=== PATIENT | female | born 1940 | race Caucasian/White ===

== ENCOUNTER 2018-01-21 07:19 | Emergency (ER) | payer MEDICARE, MEDICAID ==
[~2018-01-21] VITALS: Ht 152.4 cm; Wt 64.4 kg
--- NOTE | 2018-01-21 07:30 | NUR ---
AAOX3, BIB FAMILY C/O HYPERTENSION WITH SBP OF 220 PRIOR TO ARRIVAL. PATIENT STATES THAT SHE TOOK CLONIDINE 0.1MG LAST NIGHT BUT NOT TODAY. AMBULATES TO ER BED 09 WITH STABLE GAIT. RR IS EVEN AND UNLABORED WITH NAD NOTED. PLACED ON THE MONITOR. DR LUCIO AT FOR EVAL.
[2018-01-21 07:51] LABS: BASOPHILS % (AUTO) 0.3 % (0.0-2.0); EOSINOPHILS % (AUTO) 0.6 % (0.0-6.0); HEMATOCRIT 39 % (33-45); HEMOGLOBIN 13.1 g/dL (11.5-14.8); LYMPHOCYTES # (AUTO) 2.8 /CMM (0.8-4.8); LYMPHOCYTES % (AUTO) 43.5 % (20.0-44.0); MEAN CORPUSCULAR HGB CONC 34 g/dl (31.0-36.0); MEAN CORPUSCULAR VOLUME 88 fL (82-100); MONOCYTES # (AUTO) 0.2 /CMM (0.1-1.30); MONOCYTES % (AUTO) 3.8 % (2.0-12.0); NEUTROPHILS # (AUTO) 3.4 /CMM (1.8-8.9); NEUTROPHILS % (AUTO) 51.8 % (43.0-81.0); PLATELET COUNT (AUTO) 171 /CMM (150-450); RED BLOOD CELL COUNT(AUTO) 4.41 MIL/uL (4.0-5.2); WHITE BLOOD COUNT (AUTO) 6.5 K/uL (4.3-11.0)
[2018-01-21] MEDS ORDERED: ENALAPRILAT DIHYD. (2.5MG/ML) 1.25 MG/ML VIAL IV ONE ×2 (08:00→08:18)
[2018-01-21 08:07] LABS: ALANINE AMINOTRANSFERASE 61 U/L (12-78); ALBUMIN 3.7 g/dL (3.4-5.0); ALKALINE PHOSPHATASE 64 U/L (46-116); ASPARTATE AMINOTRANSFERASE 37 U/L (15-37); BILIRUBIN,DIRECT 0.1 mg/dL (0.0-0.2); BILIRUBIN,TOTAL 0.4 mg/dL (0.2-1.0); CALCIUM, SERUM 9.1 mg/dL (8.5-10.1); CARBON DIOXIDE 31 mmol/L (21-32); CHLORIDE 104 mmol/L (98-107); GLUCOSE 96 mg/dL (74-106); POTASSIUM 3.7 mmol/L (3.5-5.1); SODIUM SERUM 143 mmol/L (136-145); UREA NITROGEN, BLOOD 16 mg/dL (7-18)
[2018-01-21] MEDS ORDERED: METOPROLOL SUCCINATE 25 MG TAB.SR.24H PO STA (08:24)
--- NOTE | 2018-01-21 08:24 | NUR ---
DR LUCIO AT FOR AN UPDATE AND RE-EVAL.
[2018-01-21] MEDS ORDERED: METOPROLOL TARTRATE 25 MG TABLET ONE (08:28)
[2018-01-21 08:35] VITALS: BP 157/72
== END 2018-01-21 08:36 | disposition home or self-care (01) ==
LOC: ER 07:20
DX: I10 Essential (primary) hypertension (principal); J45.909 Unspecified asthma, uncomplicated; F32.9 Major depressive disorder, single episode, unspecified; R07.89 Other chest pain
CPT/HCPCS: 36415; 71045; 80048; 80076; 84484; 85025; 85730; 93005; 96374; 99284; A4606; J3490; Z7610

== ENCOUNTER 2020-08-24 12:27 | Inpatient (IN) | payer MEDICARE, OTHER ==
[~2020-08-24] VITALS: Ht 152.4 cm; Wt 66.2 kg
[2020-08-24] MEDS ORDERED: CLON0.1T PO (12:40)
[2020-08-24] MEDS ORDERED: SIMV-46 PO (12:40)
[2020-08-24] MEDS ORDERED: HYDR-4077 PO (12:40)
[2020-08-24] MEDS ORDERED: SENN-148 PO (12:40)
[2020-08-24] MEDS ORDERED: GABA300C PO (12:40)
[2020-08-24] MEDS ORDERED: FERR325T24 PO (12:40)
[2020-08-24] MEDS ORDERED: AMLO-213 PO (12:40)
[2020-08-24] MEDS ORDERED: ASPI-1420 PO (12:40)
[2020-08-24] MEDS ORDERED: OLME40TA18 PO (12:40)
[2020-08-24] MEDS ORDERED: DEXL60CA3 PO (12:40)
[2020-08-24] MEDS ORDERED: METO25TA20 PO (12:40)
--- NOTE | 2020-08-24 12:56 | NUR ---
CALLED NURSING SUP FOR TELE BED.
[2020-08-24 13:01] LABS: BASOPHILS % (AUTO) 0.4 % (0.0-2.0); HEMATOCRIT 40 % (33-45); HEMOGLOBIN 13.4 g/dL (11.5-14.8); LYMPHOCYTES # (AUTO) 1.3 K/uL (0.8-4.8); LYMPHOCYTES % (AUTO) 30.5 % (20.0-44.0); MEAN CORPUSCULAR HGB CONC 34 g/dl (31.0-36.0); MEAN CORPUSCULAR VOLUME 89 fL (82-100); MONOCYTES # (AUTO) 0.3 K/uL (0.1-1.30); MONOCYTES % (AUTO) 5.9 % (2.0-12.0); NEUTROPHILS # (AUTO) 2.8 K/uL (1.8-8.9); NEUTROPHILS % (AUTO) 63.2 % (43.0-81.0); PLATELET COUNT (AUTO) 112 K/uL (150-450); RED BLOOD CELL COUNT(AUTO) 4.43 MIL/uL (4.0-5.2); WHITE BLOOD COUNT (AUTO) 4.4 K/uL (4.3-11.0)
[2020-08-24] MEDS ORDERED: ZOLP5TAB8 PO (13:09)
[2020-08-24] MEDS ORDERED: ALPR0.5T8 PO (13:09)
[2020-08-24] MEDS ORDERED: HYDR25TA4 PO (13:09)
[2020-08-24 13:13] LABS: CALCIUM, SERUM 8.3 mg/dL (8.5-10.1); CARBON DIOXIDE 27 mmol/L (21-32); CHLORIDE 94 mmol/L (98-107); GLUCOSE 94 mg/dL (74-106); POTASSIUM 3.4 mmol/L (3.5-5.1); SODIUM SERUM 133 mmol/L (136-145); UREA NITROGEN, BLOOD 16 mg/dL (7-18)
--- NOTE | 2020-08-24 13:16 | NUR ---
HIMA ALVAREZ [phone]
--- NOTE | 2020-08-24 13:17 | NUR ---
BIBDAUGHTER FROM HOME TO ER BED 7. AAOX4. SOB, NOTED SATTING @ 92% ON RA. BROUGHT IN FOR FLU LIKE SYMPTOM. SOB SATTING @ 92% X 5 DAYS. PLACED ON 02 VIA NC @ 4LPM W/ NOT SLIGHT DISTRESS ALLEVIATION. PT REPORTS NOT TO BE COVID VACCINATED. WAS AT THE BEDSIDE. PT ON MONITOR
[2020-08-24 13:25] LABS: ALANINE AMINOTRANSFERASE 30 U/L (12-78); ALBUMIN 3.5 g/dL (3.4-5.0); ALKALINE PHOSPHATASE 62 U/L (46-116); ASPARTATE AMINOTRANSFERASE 30 U/L (15-37); BILIRUBIN,TOTAL 0.5 mg/dL (0.2-1.0); TOTAL PROTEIN, SERUM 7.4 g/dL (6.4-8.2)
[2020-08-24 13:51] LABS: D-DIMER 0.57 mg/L(FEU (0.17-0.50)
[2020-08-24] MEDS ORDERED: CEFTRIAXONE 1 G in IV D5W 50 ML IV ONE (14:30)
[2020-08-24] MEDS ORDERED: AZITHROMYCIN 500 MG in IV D5W 250 ML IV ONE (14:30)
--- NOTE | 2020-08-24 15:23 | NUR ---
room 120-1
[2020-08-24 15:39] LABS: CREATINE KINASE, TOTAL 104 U/L (26-192); FERRITIN 695 ng/mL (8-388)
--- NOTE | 2020-08-24 15:43 | NUR ---
REPORT GIVEN TO ALAYNA LAURA FOR RONN
[2020-08-24 15:44] LABS: C-REACTIVE PROTEIN 26.6 mg/dL (0.0-0.9)
--- NOTE | 2020-08-24 16:12 | NUR ---
PT TRANSPORTED TO UNIT ON GURNEY WITH EMT AND RN AT BEDSIDE W/ ACLS PROTOCOL. NAD NOTED DURING TRANSPORT.
--- NOTE | 2020-08-24 16:15 | NUR ---
RN NOTES PATIENT TRANSFERRED TO UNIT AT ROOM 120-2 VIA RWHEELER, ACCOMPANIED BY 2 ER NURSES.
[2020-08-24 16:30] VITALS: BP 140/90
[2020-08-24] MEDS ORDERED: MAGNESIUM HYDROXIDE 30 ML UDC PO PRN (17:00)
[2020-08-24] MEDS ORDERED: ZOLPIDEM TARTRATE 5 MG TABLET PO PRN (17:00)
[2020-08-24] MEDS ORDERED: Z GUARD REMEDY 2 OZ OINT TP PRN (17:00)
[2020-08-24] MEDS ORDERED: MAG HYDROX/AL HYDROX/SIMETH 30 ML UDC PO PRN (17:00)
--- NOTE | 2020-08-24 18:34 | NUR ---
RN NOTES ADMITTED THIS 80-YEAR-OLD FEMALE PATIENT FROM ER W/ COMPLAINT OF FLU-LIKE SYMPTOMS AND ADMITTING DX OF LINGULAR PNEUMONIA UNDER THE CARE OF DR. GIVENS. PATIENT IS A/O X4, [place] CITIZEN-SPEAKING BUT SPEAKS/UNDERSTANDS CITIZEN OF [place], ABLE TO MAKE NEEDS KNOWN. CURRENTLY ON O2 AT 3LPM VIA N/C, NO SOB AT REST BUT GETS SHORT OF BREATH UPON EXERTION. PATIENT IS AMBULATORY W/ STEADY GAIT, NO SKIN ISSUES. IV LINE ON LAC #18 INTACT AND PATENT; IV ATB PREVIOUSLY GIVEN AT ER. INSTITUTED DROPLET PRECAUTION PER MD'S ORDER. CURRENTLY RAPID COVID NEGATIVE AND PCR PENDING. SAFETY MEASURES MAINTAINED. WILL ENDORSE TO SECTION LABORER RN FOR RONN.
--- NOTE | 2020-08-24 19:00 | NUR ---
received in bed with her street clothes on and tele monitor lying in the bed, changed her clothes and placed an hospital gown on and put on the heart monitor and noted HR 106 ST on the monitor she is alert and orientated X4 smiling and cooperative
[2020-08-24] MEDS: ACETAMINOPHEN 325 MG TABLET PO PRN (19:59)
[2020-08-24] MEDS: ENOXAPARIN SODIUM 40 MG/0.4 ML DISP.SYRIN SQ SCH (21:07)
--- NOTE | 2020-08-25 05:01 | NUR ---
CLOSING NOTES: IN BED ALERT AND ORIENTATED X4 DRINKING WATER SWALLOWS W/O PROBLEMS C/O FEELING TIRED AND WEAK. REVIEWED THE CALL LIGHT WITH HER AND REMINDED HER TO CALL FOR ASSIST WHEN GETTING OOB TYLENOL GIVEN FOR H/A AND EFFECTIVE TEMP AT 4AM WAS 100.3 ORALLY RSP [address] HR 105 DROPLET ISOLATION
[2020-08-25 05:06] VITALS: BP 125/80
[2020-08-25 06:38] LABS: BASOPHILS % (AUTO) 0.2 % (0.0-2.0); HEMATOCRIT 36 % (33-45); HEMOGLOBIN 12.1 g/dL (11.5-14.8); LYMPHOCYTES # (AUTO) 1.3 K/uL (0.8-4.8); LYMPHOCYTES % (AUTO) 33.9 % (20.0-44.0); MEAN CORPUSCULAR HGB CONC 34 g/dl (31.0-36.0); MEAN CORPUSCULAR VOLUME 91 fL (82-100); MONOCYTES # (AUTO) 0.3 K/uL (0.1-1.30); MONOCYTES % (AUTO) 7.6 % (2.0-12.0); NEUTROPHILS # (AUTO) 2.3 K/uL (1.8-8.9); NEUTROPHILS % (AUTO) 58.3 % (43.0-81.0); PLATELET COUNT (AUTO) 113 K/uL (150-450); RED BLOOD CELL COUNT(AUTO) 3.97 MIL/uL (4.0-5.2); WHITE BLOOD COUNT (AUTO) 3.9 K/uL (4.3-11.0)
[2020-08-25 06:42] LABS: CALCIUM, SERUM 8.1 mg/dL (8.5-10.1); CREATININE 1.1 mg/dL (0.6-1.3); MAGNESIUM 2.1 mg/dL (1.8-2.4); PHOSPHORUS 3.5 mg/dL (2.5-4.9); POTASSIUM 3.4 mmol/L (3.5-5.1)
[2020-08-25] MEDS: PANTOPRAZOLE 40 MG TABLET.DR PO SCH (07:36)
--- NOTE | 2020-08-25 07:40 | NUR ---
RN NOTE PATIENT IS IN BED WITH HOB AT SEMI FOWLERS POSITION. PATIENT IS AOX4. PATIENT ON 3L NC WITH NO SIGNS OF LABORED BREATHING. BED IS LOCKED IN THE LOWEST POSITION, 3 GUARD RAILS RAISED, CALL ARANA WITHIN REACH, AND ALL HOSPITAL SAFETY PRECAUTIONS ARE BEING FOLLOWED. WILL CONTINUE TO MONITOR THROUGHOUT SHIFT.
[2020-08-25 07:42] LABS: C-REACTIVE PROTEIN 22.4 mg/dL (0.0-0.9)
[2020-08-25 08:00] VITALS: BP 104/76
[2020-08-25] MEDS ORDERED: CEFTRIAXONE 1GM BAG (ER ONLY) 1 GM/50 ML PIGGYBACK IV SCH (09:00)
[2020-08-25] MEDS ORDERED: POTASSIUM CHLORIDE 20 MEQ TAB.PRT.SR PO SCH (09:30)
[2020-08-25 12:00] VITALS: BP 130/69
[2020-08-25] MEDS: CEFTRIAXONE 1 G in IV D5W 50 ML IV SCH (13:22)
[2020-08-25 16:00] VITALS: BP 150/69
[2020-08-25] MEDS: AZITHROMYCIN 500 MG in IV D5W 250 ML IV SCH (16:03)
[2020-08-25] MEDS: ACETAMINOPHEN 325 MG TABLET PO PRN (16:33)
--- NOTE | 2020-08-25 17:19 | NUR ---
RN NOTE ADMINISTERED TYLENOL FOR TEMPERATURE OF 100.7 WILL CONTINUE TO MONITOR.
--- NOTE | 2020-08-25 18:53 | NUR ---
RN NOTE PATIENT IS IN BED WITH HOB AT SEMI FOWLERS POSITION. PATIENT IS AOX4. PATIENT ON 3L NC WITH NO SIGNS OF LABORED BREATHING. LAC IV ACCESS IS PATENT AND INTACT. BED IS LOCKED IN THE LOWEST POSITION, 3 GUARD RAILS RAISED, CALL ARANA WITHIN REACH, AND ALL HOSPITAL SAFETY PRECAUTIONS ARE BEING FOLLOWED. ALL DUE MEDS GIVEN AND PATIENT REMAINED STABLE THROUGHOUT SHIFT. WILL ENDORSE TO SENIOR BUSINESS PROCESS ANALYST RN.
[2020-08-25 20:00] VITALS: BP 120/67
[2020-08-25] MEDS: ENOXAPARIN SODIUM 40 MG/0.4 ML DISP.SYRIN SQ SCH (20:53)
[2020-08-26] VITALS: BP 118/71
[2020-08-26] MEDS: PANTOPRAZOLE 40 MG TABLET.DR PO SCH (07:23)
--- NOTE | 2020-08-26 07:25 | NUR ---
RN NOTE PATIENT IS IN BED WITH HOB AT SEMI FOWLERS POSITION. PATIENT IS AOX4. PATIENT ON 3L NC WITH NO SIGNS OF LABORED BREATHING. LAC IV ACCESS IS PATENT AND INTACT. BED IS LOCKED IN THE LOWEST POSITION, 3 GUARD RAILS RAISED, CALL ARANA WITHIN REACH, AND ALL HOSPITAL SAFETY PRECAUTIONS ARE BEING FOLLOWED. WILL CONTINUE TO MONITOR THROUGHOUT SHIFT.
[2020-08-26 07:27] LABS: BASOPHILS % (AUTO) 0.1 % (0.0-2.0); HEMATOCRIT 36 % (33-45); HEMOGLOBIN 11.8 g/dL (11.5-14.8); LYMPHOCYTES # (AUTO) 1.2 K/uL (0.8-4.8); LYMPHOCYTES % (AUTO) 37.6 % (20.0-44.0); MEAN CORPUSCULAR HGB CONC 33 g/dl (31.0-36.0); MEAN CORPUSCULAR VOLUME 91 fL (82-100); MONOCYTES # (AUTO) 0.3 K/uL (0.1-1.30); MONOCYTES % (AUTO) 8.2 % (2.0-12.0); NEUTROPHILS # (AUTO) 1.8 K/uL (1.8-8.9); NEUTROPHILS % (AUTO) 54.1 % (43.0-81.0); PLATELET COUNT (AUTO) 126 K/uL (150-450); RED BLOOD CELL COUNT(AUTO) 3.91 MIL/uL (4.0-5.2); WHITE BLOOD COUNT (AUTO) 3.3 K/uL (4.3-11.0)
[2020-08-26 07:44] LABS: CREATININE 1.1 mg/dL (0.6-1.3); MAGNESIUM 2.2 mg/dL (1.8-2.4); PHOSPHORUS 3.4 mg/dL (2.5-4.9); POTASSIUM 3.7 mmol/L (3.5-5.1)
[2020-08-26 08:00] VITALS: BP 136/76
[2020-08-26 12:00] VITALS: BP_SYST 118; BP_SYST 129; BP_DIAS 71; BP_DIAS 78
[2020-08-26] MEDS: CEFTRIAXONE 1 G in IV D5W 50 ML IV SCH (13:56)
[2020-08-26 16:00] VITALS: BP_SYST 142; BP_SYST 152; BP_DIAS 75
[2020-08-26] MEDS: AZITHROMYCIN 500 MG in IV D5W 250 ML IV SCH (16:00)
--- NOTE | 2020-08-26 18:42 | NUR ---
RN NOTE PATIENT IS IN BED WITH HOB AT SEMI FOWLERS POSITION. PATIENT IS AOX4. PATIENT ON 2L NC WITH NO SIGNS OF LABORED BREATHING. LAC IV ACCESS IS PATENT AND INTACT. BED IS LOCKED IN THE LOWEST POSITION, 3 GUARD RAILS RAISED, CALL ARANA WITHIN REACH, AND ALL HOSPITAL SAFETY PRECAUTIONS ARE BEING FOLLOWED. ALL DUE MEDS GIVEN AND PATIENT REMAINED STABLE THROUGHOUT SHIFT. WILL ENDORSE TO TRANSFORMER INSPECTOR RN.
[2020-08-26 20:00] VITALS: BP 158/76
[2020-08-26] MEDS: ENOXAPARIN SODIUM 40 MG/0.4 ML DISP.SYRIN SQ SCH (20:18)
--- NOTE | 2020-08-26 21:30 | NUR ---
RN NOTES, MIDLINE NURSE AT PATIENT'S ROOM, SATISFACTORY INSERTION OF MARCO MIDLINE 18G, PATENT AND INTACT, PATIENT TOLERATED PROCEDURE WELL.
[2020-08-27] VITALS: BP 150/84
[2020-08-27 04:00] VITALS: BP 150/86
--- NOTE | 2020-08-27 06:45 | NUR ---
RN NOTE PATIENT IS IN BED AOX4, NO SOB/ACUTE DISTRESS NOTED, KEEPING O2 >96% ,NO SIGNIFICANT CHANGE IN CONDITION DURING THE NIGHT, AMBULATORY, BRP PRIVILEGES, TOLERATED WELL, BED LOCKED AND IN LOWEST POSITION, CALL LIGHT WITHIN REACH, REMAINED STABLE THROUGHOUT SHIFT, WILL ENDORSE CONTINUITY OF CARE TO ONCOMING NURSE.
[2020-08-27 08:00] VITALS: BP 159/84
[2020-08-27] MEDS: PANTOPRAZOLE 40 MG TABLET.DR PO SCH (09:18)
[2020-08-27 12:00] VITALS: BP 141/77
[2020-08-27] MEDS: ACETAMINOPHEN 325 MG TABLET PO PRN (13:15)
--- NOTE | 2020-08-27 13:20 | NUR ---
rn notes noted with elevated temperature 100.4, cooling measures rendered and tylenol given PO, will continue to monitor.
[2020-08-27] MEDS: CEFTRIAXONE 1 G in IV D5W 50 ML IV SCH (13:23)
[2020-08-27 16:00] VITALS: BP 161/82
[2020-08-27] MEDS: AZITHROMYCIN 250 MG TABLET PO SCH (16:31)
--- NOTE | 2020-08-27 18:52 | NUR ---
RN NOTES Patient in bed resting comfortably in moderate high back rest. a/o x4, able to make needs known, on Oxygen 2lpm via nc, tolerating well, no signs of distress noted throughout the shift, IV access on MARCO mid line. intact and patent. Safety measures maintained, bed in lowest locked position with side rails up x2, call light within reach, will endorse to shift supervisor rn nurse for leeanna.
--- NOTE | 2020-08-27 19:10 | NUR ---
RN NOTES: RECEIVED AWAKE ON BED ON SEMI FOWLERS POSITION, ON O2 AT 2L/MIN SPO2-95% ON SR TO ST-100, AMBULATOR, SKIN IS INTACT, A/0 X 4 ABLE TO MAKE NEEDS KNOWN, MARCO MID LINE INTACT AND PATENT, KEPT ON CLOSE WATCH -NO SIGN OF RESPIRATORY DISTRESS, ORIETNED TO UNIT AND STAFF, FALL,SAFETY AND ASPIRATION PRECAUTION OBSERVED.
--- NOTE | 2020-08-27 19:12 | NUR ---
RN NOTES: RECEIVED LYING ON BED ON SEMI FOWLERS POSITION, PER ENDORSEMENT PATIENT CAME FROM ICU, EXTUBATED LAST THURSDAY, NON VERBAL, RESPONDING WHEN NAME IS CALLED HE IS LOOKING AT YOU MAKING EYE CONTACT,ON O2 AT 2L/MIN VIA NC SPO2-95%,ON PEG TUBE WITH FEEDING OF GLUCERNA 1.2 AT 55 ML/HR ,KEPT HEAD ELEVATED,ON TELE MONITOR SR-82, TO REINSERT CONDOM CATH, IT WAS OUT. --ORIENTED TO UNIT AND STAFF, BED LO AND LOCKED, KEPT CALL LIGHT WITHIN EASY REACH, FALL, ASPIRATION AND SAFETY PRECAUTION OBSERVED. --NEEDS ATTENDED. Addendum: 08/28/20 at 0006 by YELITZA HESS RN --WRONG ENTRY OF CHARTING ITS FOR 111-BED 2
[2020-08-27 20:00] VITALS: BP 149/71
[2020-08-27] MEDS: ENOXAPARIN SODIUM 40 MG/0.4 ML DISP.SYRIN SQ SCH (20:53)
--- NOTE | 2020-08-27 23:37 | NUR ---
ALAYNA NOTES: AROUND 2199 REQUEST TO RN/CN TO CHANGE HIS ROOM HIS TEMPERATURE WAS 100 BUT AFTER REMOVING THE BLANKET TEMPERATURE IMPROVE TO 98-99. HE WAS MOVE FROM ROOM 120 TO 111. Addendum: 08/28/20 at 0009 by YELITZA HESS RN --WRONG ENTRY OF CHARTING IT IS FOR PATIENT IN ROOM 111-2
--- NOTE | 2020-08-27 23:39 | NUR ---
RN NOTES: --PASS LARGE AMOUNT OF PEE, BED BATH RENDERED, CLEAN AND CHANGE, CONDOM CATH INSERTED,PEG FEEDING CONTINUE, FLUSHING DONE, NEEDS ATTENDED, --BLE-OFF LOADED. --REPOSITIONING DONE. Addendum: 08/28/20 at 0011 by YELITZA HSES RN --WRONG ENTRY OF CHARTING, IT IS FOR PATIENT IN ROOM 11-2.
[2020-08-28] VITALS: BP 164/80
[2020-08-28 04:00] VITALS: BP 146/83
[2020-08-28 07:06] LABS: BASOPHILS % (AUTO) 0.2 % (0.0-2.0); EOSINOPHILS % (AUTO) 0.1 % (0.0-6.0); HEMATOCRIT 36 % (33-45); LYMPHOCYTES # (AUTO) 1.1 K/uL (0.8-4.8); LYMPHOCYTES % (AUTO) 26.6 % (20.0-44.0); MEAN CORPUSCULAR HGB CONC 34 g/dl (31.0-36.0); MEAN CORPUSCULAR VOLUME 91 fL (82-100); MONOCYTES # (AUTO) 0.3 K/uL (0.1-1.30); NEUTROPHILS # (AUTO) 2.7 K/uL (1.8-8.9); NEUTROPHILS % (AUTO) 65.1 % (43.0-81.0); PLATELET COUNT (AUTO) 186 K/uL (150-450); RED BLOOD CELL COUNT(AUTO) 3.92 MIL/uL (4.0-5.2); WHITE BLOOD COUNT (AUTO) 4.1 K/uL (4.3-11.0)
[2020-08-28 07:30] LABS: CALCIUM, SERUM 8.4 mg/dL (8.5-10.1); CREATININE 0.9 mg/dL (0.6-1.3); MAGNESIUM 2.3 mg/dL (1.8-2.4); PHOSPHORUS 3.7 mg/dL (2.5-4.9); POTASSIUM 3.8 mmol/L (3.5-5.1)
--- NOTE | 2020-08-28 07:41 | NUR ---
RN NOTES: PATIENT REMAIN STABLE SPO2-92%, NO SIGN OF SOB OR RESPIRATORY DISTRESS,TO START DECADRON,AFEBRILE, FOR PULMO CONSULT, ADVANCE DIRECTED WAS CHANGE TO FULL CODE. -ENDORSED FOR CONTINUITY OF CARE.
[2020-08-28 08:00] VITALS: BP 139/80
[2020-08-28] MEDS: PANTOPRAZOLE 40 MG TABLET.DR PO SCH (08:04)
[2020-08-28] MEDS: DEXAMETHASONE SOD PHOSPHATE 4 MG/ML VIAL IV SCH (08:04)
[2020-08-28 12:00] VITALS: BP 131/75
[2020-08-28] MEDS: CEFTRIAXONE 1 G in IV D5W 50 ML IV SCH (14:34)
[2020-08-28 16:00] VITALS: BP 128/72
[2020-08-28] MEDS: AZITHROMYCIN 250 MG TABLET PO SCH (16:27)
--- NOTE | 2020-08-28 19:46 | NUR ---
RN NOTE PATIENT AWAKE, ALERT, AND ORIENTED X4. ABLE TO MAKE NEEDS KNOWN. ON O2 2L VIA NASAL CANNUL, NO SIGNS OF RESPIRATORY DISTRESS. DENIES ANY PAIN OR DISCOMFORT. IV ACCESS ON MARCO MIDLINE, PATENT AND INTACT. NO SIGNS OF INFILTRATION. BED LOCKED AND IN LOWEST POSITION. CALL LIGHT WITHIN REACH. ALL NEEDS ANTICIPATED.
[2020-08-28 20:00] VITALS: BP 165/96
[2020-08-28] MEDS: ENOXAPARIN SODIUM 40 MG/0.4 ML DISP.SYRIN SQ SCH (20:16)
--- NOTE | 2020-08-28 21:24 | NUR ---
NOTIFIED CRESENCIO BOWERS PATIENTS BLOOD PRESSURE 165/96 WITH NEW ORDERS FOR HYDRALAZINE 10MG IV Q4H PRN KEEP SBP <160 NOTED AND CARRIED OUT.
[2020-08-28] MEDS ORDERED: hydrALAZINE HCL IV 20 MG VIAL IV PRN (21:30)
[2020-08-29] VITALS: BP 162/88
[2020-08-29] MEDS: ONDANSETRON HCL/PF 4 MG/2 ML VIAL IVP PRN ×2 (00:13→09:51)
[2020-08-29] MEDS: ACETAMINOPHEN 325 MG TABLET PO PRN ×3 (00:14→22:48)
[2020-08-29 04:00] VITALS: BP 143/80
--- NOTE | 2020-08-29 06:49 | NUR ---
RN NOTE PATIENT RESTING IN BED, ALERT AND ORIENTED X4. ABLE TO MAKE NEEDS KNOWN. ON O2 2L VIA NASAL CANNUL, NO SIGNS OF RESPIRATORY DISTRESS. COMPLAINED OF MILD HEADACHE, TYLENOL PRN GIVEN ORDERED. IV ACCESS ON MARCO MIDLINE, PATENT AND INTACT. NO SIGNS OF INFILTRATION. ALL NEEDS ATTENDED PROMPTLY. BED LOCKED AND IN LOWEST POSITION. CALL LIGHT WITHIN REACH. WILL ENDORSE TO AM SHIFT.
--- NOTE | 2020-08-29 07:30 | NUR ---
RN OPENING NOTES Patient is alert and oriented. Patient is on 2 liters 02 via n/c with 02 sat of 96%. No c/o pain or discomfort. HOB kept elevated. Call light with in reach. On tele box readings. Will continue to monitor.Bed is in lowest and locked position.
[2020-08-29 08:00] VITALS: BP 121/70
[2020-08-29] MEDS ORDERED: GABAPENTIN 300 MG CAPSULE PO PRN (09:00)
[2020-08-29] MEDS ORDERED: HYDROCHLOROTHIAZIDE 25 MG TABLET PO SCH (09:00)
[2020-08-29] MEDS ORDERED: ZOLPIDEM TARTRATE 5 MG TABLET PO PRN (09:00)
[2020-08-29] MEDS ORDERED: ALPRAZOLAM 0.5 MG TABLET PO PRN (09:00)
[2020-08-29] MEDS: DEXAMETHASONE SOD PHOSPHATE 4 MG/ML VIAL IV SCH (09:37)
[2020-08-29] MEDS: AMLODIPINE BESYLATE 10 MG TABLET PO SCH (09:37)
[2020-08-29] MEDS: ASPIRIN EC 81 MG TABLET.DR PO SCH (09:37)
[2020-08-29] MEDS: PANTOPRAZOLE 40 MG TABLET.DR PO SCH (09:38)
[2020-08-29] MEDS: METOPROLOL TARTRATE 25 MG TABLET PO SCH (09:38)
[2020-08-29 14:00] VITALS: BP 139/70
[2020-08-29 16:00] VITALS: BP 123/70
--- NOTE | 2020-08-29 19:01 | NUR ---
RN CLOSING NOTES Patient is alert and oriented. Patient is on 2 liters 02 via n/c with 02 sat of 93%. No c/o pain or discomfort. HOB kept elevated. Call light with in reach. On tele box readings. Will continue to monitor.Bed is in lowest and locked position. Will endorse to next shift for RONN.
--- NOTE | 2020-08-29 19:37 | NUR ---
RN OPENING NOTE RECD PT IN BED. AWAKE A/O X4. FRISIAN AND ALB[place]IAN SPEAKING. PT IS ON ISOLATION FOR POSITIVE COVID RESULT. PT IS ON 3L OF O2 VIA NASAL CANNULA, PT TOLERATING, NO SOB OR RESP DISTRESS NOTED. PT IS ON TELEMETRY MONITORING. PT IS ST WITH HR OF 108 AT THIS TIME. PT DENIES PAIN. PT HAS IV MARCO MIDLINE, FLUSHED ASEPTICALLY. NO S/S OF INFILTRATION NOTED. PT IS AMBULATORY WITH STEADY GAIT ALL NEEDS ATTENDED AT THIS TIME. SAFETY MEASURES IN PLACE. HOB ELEVATED. SIDE RAILS UP X2 BED LOCKED IN LOWEST POSITION, BED ALARM ON. CALL LIGHT WITHIN REACH, WILL CONT TO MONITOR THROUGHOUT SHIFT.
[2020-08-29 20:00] VITALS: BP 147/75
[2020-08-29] MEDS: ENOXAPARIN SODIUM 40 MG/0.4 ML DISP.SYRIN SQ SCH (20:57)
[2020-08-29] MEDS: SENNOSIDES 8.6 MG TABLET PO SCH (21:38)
--- NOTE | 2020-08-29 21:40 | NUR ---
RN NOTE PT REFUSED 2200 [place] BECAUSE SHE STATES SHE RECENTLY JUST HAD A BOWEL MOVEMENT. WHEN ASKING PT WHEN SHE VERBALIZES "2 DAYS AGO" PER PT, THAT IS NORMAL FOR HER BECAUSE SHE DOESNT EAT A LOT. EDUCATED PATIENT ON THE IMPORTANCE OF PO INTAKE. EDUCATED RISK AND BENEFITS X2 OF INCREASING PO INTAKE AND MEDICATION, PT AT THIS TIME STILL REFUSES. WILL CONT TO MONITOR.
--- NOTE | 2020-08-29 22:48 | NUR ---
RN NOTE PT AT THIS TIME C/O MILD PAIN AND HEADACHE REQUESTS TYLENOL. WILL ADMIN PRN ORDERED AND CONTINUE TO MONITOR
[2020-08-30] VITALS: BP 126/76
--- NOTE | 2020-08-30 02:59 | NUR ---
RN NOTE PT RESTING WELL AT THIS TIME. NO DISTRESS NOTED UPON ROUNDS. WILL CONT TO MONITOR CLOSELY. PT REMAINS ON 3L AT THIS TIME.
[2020-08-30 04:00] VITALS: BP 146/80
[2020-08-30 06:00] LABS: CARBON DIOXIDE 34 mmol/L (21-32); CHLORIDE 100 mmol/L (98-107); POTASSIUM 3.8 mmol/L (3.5-5.1); SODIUM SERUM 141 mmol/L (136-145)
[2020-08-30 06:01] LABS: CREATININE 1.4 mg/dL (0.6-1.3); GLUCOSE 129 mg/dL (74-106); MAGNESIUM 2.4 mg/dL (1.8-2.4); UREA NITROGEN, BLOOD 40 mg/dL (7-18)
[2020-08-30 06:30] LABS: BASOPHILS % (AUTO) 0.2 % (0.0-2.0); HEMATOCRIT 36 % (33-45); HEMOGLOBIN 12.1 g/dL (11.5-14.8); LYMPHOCYTES # (AUTO) 1.2 K/uL (0.8-4.8); LYMPHOCYTES % (AUTO) 30.2 % (20.0-44.0); MEAN CORPUSCULAR HGB CONC 34 g/dl (31.0-36.0); MEAN CORPUSCULAR VOLUME 91 fL (82-100); MONOCYTES # (AUTO) 0.3 K/uL (0.1-1.30); MONOCYTES % (AUTO) 7.3 % (2.0-12.0); NEUTROPHILS # (AUTO) 2.6 K/uL (1.8-8.9); NEUTROPHILS % (AUTO) 62.3 % (43.0-81.0); PLATELET COUNT (AUTO) 267 K/uL (150-450); RED BLOOD CELL COUNT(AUTO) 3.96 MIL/uL (4.0-5.2); WHITE BLOOD COUNT (AUTO) 4.1 K/uL (4.3-11.0)
--- NOTE | 2020-08-30 06:48 | NUR ---
RN CLOSING NOTE PT REMAINS IN BED, NO SIGNIFICANT CHANGES. REMAINS ON 3L OF O2 VIA NASAL CANNULA, NO RESP DISTRESS OR SOB NOTED. PT IS NSR HEART RATE OF 85 AT THIS TIME. ALL NEEDS ATTENDED. DENIES PAIN. ALL DUE MEDS GIVEN. SAFETY MEASURES IN PLACE. HOB ELEVATED TOLERATED. SIDE RAILS UP X2. BED LOCKED IN LOWEST POSITION. CALL LIGHT WITHIN REACH. WILL ENDORSE TO DAY SHIFT NURSE FOR CONTINUATION OF CARE.
--- NOTE | 2020-08-30 07:45 | NUR ---
RN NOTE PATIENT IS IN BED WITH HOB AT SEMI FOWLERS POSITION. PATIENT IS ON 3L NC WITH NO SIGNS OF DISTRESS. PATIENT IS AOX4. MARCO MIDLINE IS PATENT AND INTACT. BED IS LOCKED IN THE LOWEST POSITION, 3 GUARD RAILS RAISED, CALL ARANA WITHIN REACH, AND ALL HOSPITAL SAFETY PRECAUTIONS ARE BEING FOLLOWED. WILL CONTINUE TO MONITOR THROUGHOUT SHIFT.
[2020-08-30 08:00] VITALS: BP 145/81
[2020-08-30] MEDS: ASPIRIN EC 81 MG TABLET.DR PO SCH (08:25)
[2020-08-30] MEDS: PANTOPRAZOLE 40 MG TABLET.DR PO SCH (08:26)
[2020-08-30] MEDS: METOPROLOL TARTRATE 25 MG TABLET PO SCH (08:26)
[2020-08-30] MEDS: LOSARTAN POTASSIUM 50 MG TABLET PO SCH (08:26)
[2020-08-30] MEDS: AMLODIPINE BESYLATE 10 MG TABLET PO SCH (08:26)
[2020-08-30] MEDS: DEXAMETHASONE SOD PHOSPHATE 4 MG/ML VIAL IV SCH (08:27)
[2020-08-30 12:00] VITALS: BP 138/79
[2020-08-30 16:00] VITALS: BP 141/84
--- NOTE | 2020-08-30 18:41 | NUR ---
RN NOTE PATIENT IS IN BED WITH HOB AT SEMI FOWLERS POSITION. PATIENT IS ON 3L NC WITH NO SIGNS OF DISTRESS. PATIENT IS AOX4. MARCO MIDLINE IS PATENT AND INTACT. BED IS LOCKED IN THE LOWEST POSITION, 3 GUARD RAILS RAISED, CALL ARANA WITHIN REACH, AND ALL HOSPITAL SAFETY PRECAUTIONS ARE BEING FOLLOWED. ALL DUE MEDS GIVEN AND PATIENT REMAINED STABLE THROUGHOUT SHIFT. WILL ENDORSE TO TECHNICAL SUPPORT ASSOCIATE RN.
[2020-08-30 20:00] VITALS: BP 144/78
[2020-08-30] MEDS: ENOXAPARIN SODIUM 40 MG/0.4 ML DISP.SYRIN SQ SCH (20:18)
[2020-08-30] MEDS: SENNOSIDES 8.6 MG TABLET PO SCH (21:14)
[2020-08-31] VITALS: BP 124/65
[2020-08-31 04:00] VITALS: BP 130/74
[2020-08-31 08:00] VITALS: BP 166/88
[2020-08-31] MEDS: ASPIRIN EC 81 MG TABLET.DR PO SCH (08:17)
[2020-08-31] MEDS: PANTOPRAZOLE 40 MG TABLET.DR PO SCH (08:17)
[2020-08-31] MEDS: METOPROLOL TARTRATE 25 MG TABLET PO SCH (08:36)
[2020-08-31] MEDS: AMLODIPINE BESYLATE 10 MG TABLET PO SCH (08:37)
[2020-08-31] MEDS: LOSARTAN POTASSIUM 50 MG TABLET PO SCH (08:37)
[2020-08-31] MEDS ORDERED: DEXAMETHASONE 4 MG TABLET PO SCH (09:00)
[2020-08-31] MEDS ORDERED: IV LR 500 ML IV ONE (09:30)
[2020-08-31] MEDS ORDERED: DEXA4TAB2 PO (10:26)
[2020-08-31 11:03] VITALS: BP 139/80
--- NOTE | 2020-08-31 11:05 | NUR ---
Patient oxygen saturation on room air is 91 percent. René Coleman RN
== END 2020-08-31 12:16 | disposition home or self-care (01) | DRG 177 ==
LOC: ER 12:37 → TELE1 15:37
PROVIDERS: ADMIT Student in an Organized Health Care Education/Training Program; ATTEND Internal Medicine
DX: U07.1 COVID-19 (principal); J96.01 Acute respiratory failure with hypoxia; J12.82 Pneumonia due to coronavirus disease 2019; E87.1 Hypo-osmolality and hyponatremia; J98.11 Atelectasis; N17.9 Acute kidney failure, unspecified; J45.909 Unspecified asthma, uncomplicated; I10 Essential (primary) hypertension; F32.9 Major depressive disorder, single episode, unspecified; E87.6 Hypokalemia; Z20.822 Contact with and (suspected) exposure to COVID-19; Z79.82 Long term (current) use of aspirin; Z79.899 Other long term (current) drug therapy; I70.0 Atherosclerosis of aorta
CPT/HCPCS: 36415; 71045-TC; 80048-TC; 80053-TC; 82550-TC; 82728-TC; 83605-TC; 83615-TC; 83735-TC; 83880; 84100-TC; 84484-TC; 85025-TC; 85378-TC; 85730-TC; 86140-TC; 87040-TC; 87081-TC; A4349; G0378; J0360; J0456; J0696; J1100; J1650; J2405; J7050; J7060; J7120; J8540; U0003